=== PATIENT | female | born 1980 | race African-American/Black ===

== ENCOUNTER 2018-10-16 14:52 | Emergency (ER) | payer SELFPAY ==
[~2018-10-16] VITALS: Ht 160 cm; Wt 90.7 kg
[2018-10-16 15:08] VITALS: BP 153/86
[2018-10-16] MEDS ORDERED: EC-NAPROXEN500 MG PO (15:12)
--- NOTE | 2018-10-16 16:30 | NUR ---
ED Nurse Note: Patient presents to ER due to abdominal pain, tightness in the chest and palpitation x 3 days; reports no N/V/D or fever or chills. Reports no dyspnea o SOB. Patient sitting in chair without facial grimacing or guarding. Regular, unlabored breathing noted. Patient states she was relaxing in sofa. Reports no heavy meal or exercise. Patient sittin in chair using cell phone.
--- NOTE | 2018-10-16 16:53 | Diagnostic Imaging Report ---
Indication: Chest pain Comparison: None A single view chest radiograph was obtained. Findings: Cardiomediastinal appearance is within normal limits for age. The lungs are clear. Pulmonary vascularity is appropriate. The diaphragmatic contour is smooth and costophrenic angles are sharp. No pleural effusions are identified. The bones are unremarkable. Impression: No acute findings
--- NOTE | 2018-10-16 17:25 | NUR ---
ED Nurse Note: Patient c/o headache. Reports no N/V. PA made aware.
--- NOTE | 2018-10-16 17:33 | Emergency Room Report ---
History of Present Illness General Chief Complaint: Abdominal Pain Source: Patient Present Illness HPI 38-year-old female with no significant past Mickey history here complaining of 2 days of continuous palpitation and tightness in epigastric area. Patient denies chest pain, radiation of chest pain, shortness of breath and wheezing. Denies recent URI symptoms. Patient reports that she measure her blood pressure at home does not have any history of high blood pressure and her blood pressure was elevated. Denies dizziness and headache. Patient is rating her pain in epigastric area 3 out of 10 denying any nausea vomiting. Denies eating acidic and spicy food. Denies alcohol intake and smoking. Patient reports that she has history of anxiety denying SI and HI. Denies urinary symptoms, diarrhea, blood in her stool. Patient is sitting or comfortably listening to music however complains of headache and anxiety. Vital signs are within normal limit blood pressure slightly elevated however he goes down through her visit. Has been taking naproxen for generalized edema and reports that she has been taking it for a month. Denies acid reflux. Patient reports that her palpitations started as she was sitting down and does not recall whether there was any stressor Allergies: Coded Allergies: No Known Allergies (Unverified , 10/16/18) Patient History Past Medical History: see triage record Past Surgical History: unable to obtain Pertinent Family History: none Last Menstrual Period: JULY 2018 Now: No Immunizations: UTD Reviewed Nursing Documentation: PMH: Agreed; PSxH: Agreed Nursing Documentation-PMH Past Medical History: No Stated History Review of Systems All Other Systems: negative except mentioned in HPI Physical Exam Vital Signs Date Time Temp Pulse Resp B/P (MAP) Pulse Ox O2 Delivery O2 Flow Rate FiO2 10/16/18 15:08 98.2 98 16 153/86 (108) 97 Sp02 EP Interpretation: reviewed, normal General Appearance: normal inspection, well appearing, no apparent distress, alert, GCS 15 Head: normocephalic, atraumatic Eyes: bilateral eye normal inspection, bilateral eye PERRL ENT: normal ENT inspection, hearing grossly normal, normal pharynx, no angioedema, TMs + canals normal Neck: normal inspection, full range of motion, supple, no bony tend, no carotid bruits Respiratory: normal inspection, chest non-tender, lungs clear, normal breath sounds, no rhonchi, no respiratory distress, no retraction, no wheezing Cardiovascular #1: normal inspection, normal peripheral pulses, regular rate, rhythm, no edema, no gallop, no murmur, normal capillary refill Gastrointestinal: normal inspection, non tender, soft, no mass, no bruit, no guarding, no pulsatile mass, no rebound Genitourinary: no CVA tenderness Musculoskeletal: normal inspection, back normal, digits/nails normal, gait/ station normal Neurologic: normal inspection, alert, oriented x3, responsive, business instructor III-XII nml as tested, motor strength/tone normal Psychiatric: normal inspection, judgement/insight normal Skin: no rash, palpation normal, normal color Lymphatic: normal inspection, no adenopathy, axilla node tender (R) Medical Decision Making PA Attestation Diagnosis and treatment plans were reviewed and discussed with my supervising physician Dr. Loyd Diagnostic Impression: Primary Impression: Palpitations Additional Impression: Gastroesophageal reflux disease ER Course 38-year-old female with no significant past Mickey history here complaining of 2 days of continuous palpitation and tightness in epigastric area. Patient denies chest pain, radiation of chest pain, shortness of breath and wheezing. Denies recent URI symptoms. Patient reports that she measure her blood pressure at home does not have any history of high blood pressure and her blood pressure was elevated. Denies dizziness and headache. Patient is rating her pain in epigastric area 3 out of 10 denying any nausea vomiting. Denies eating acidic and spicy food. Denies alcohol intake and smoking. Patient reports that she has history of anxiety denying SI and HI. Denies urinary symptoms, diarrhea, blood in her stool. Patient is sitting or comfortably listening to music however complains of headache and anxiety. Vital signs are within normal limit blood pressure slightly elevated however he goes down through her visit. Has been taking naproxen for generalized edema and reports that she has been taking it for a month. Denies acid reflux. Patient reports that her palpitations started as she was sitting down and does not recall whether there was any stressor Ddx considered but are not limited to: IA, Angina, GERD, palpitation secondary to anxiety Vital signs: are WNL, pt. is afebrile H&PE are most consistent with palpitations secondary to anxiety, GERD ORDERS: EKG, Chest XR, Tylenol, omeprazole ED INTERVENTIONS: Tylenol DISCHARGE: At this time pt. is stable for d/c to home. Will provide printed patient care instructions, and any necessary prescriptions. Care plan and follow up instructions have been discussed with the patient prior to discharge. At this time patient to follow-up with her primary care provider no further work-up is needed as there is slightly elevated blood pressure and palpitation are not related to normal EKG noted patient has no further risk factors such as old age, diabetes, history of hypertension, smoking status alcohol intake in order for her to be further worked up for acute onset of palpitation. Patient is sitting up comfortably with the remaining of her vital signs within normal limits. I advised the patient to follow-up with a primary care provider for further work-up also avoid eating spicy acidic food and avoid taking naproxen and it can be recent of her symptoms and acid reflux presenting as palpitation and pain. EKG Diagnostic Results Rate: normal ST Segments: no acute changes Chest X-Ray Diagnostic Results Chest X-Ray Diagnostic Results : Chest X-Ray Ordered: Yes # of Views/Limited/Complete: 1 View Indication: Other EP Interpretation: Yes [id number] Xray: Interpretation reviewed, by supervising MD, and agrees with findings. Interpretation: no consolidation, no effusion, no pneumothorax, no acute cardiopulmonary disease Impression: No acute disease Electronically Signed by: Rajeev Mayen PA-C Last Vital Signs Date Time Temp Pulse Resp B/P (MAP) Pulse Ox O2 Delivery O2 Flow Rate FiO2 10/16/18 15:08 98.2 98 16 153/86 (108) 97 Disposition: HOME, SELF-CARE Condition: Stable Scripts Acetaminophen (Tylenol) 325 Mg Tablet 650 MG ORAL Q6H PRN for Prn Pain/Headache/Temp > 101, #30 TAB 0 Refills Prov: Rajeev Kelly 10/16/18 Omeprazole (OMEPRAZOLE) 20 Mg Capsule. 20 MG ORAL DAILY, #30 CAP Prov: Rajeev Kelly 10/16/18 Referrals: NOT CHOSEN IPA/,REFERRING (PCP) Patient Instructions: Gastroesophageal Reflux Disease, Adult, Palpitations, [id number] Additional Instructions: Follow-up with a primary care provider for further assessment at this time based on your normal EKG and chest x-ray and vital being stable no indication for acute's onset of chest pain or palpitation. Your symptoms can be secondary to anxiety. Rajeev Kelly Oct 16, 2018 17:33
[2018-10-16] MEDS ORDERED: OMEPRAZOLE20 M2 ORAL (17:36)
[2018-10-16] MEDS ORDERED: TYLENOL325 MG ORAL (17:36)
--- NOTE | 2018-10-16 17:40 | NUR ---
ED Nurse Note: Patient watching video on cell phone. No facial grimacing or guarding noted.
[2018-10-16 18:10] VITALS: BP 124/73
--- NOTE | 2018-10-16 18:10 | NUR ---
ED Nurse Note: Patient is being discharged from medical care. D/C instruction and prescription given to patient. All questions were answered. Patient ambulated out with steady gait with all her belongings.
== END 2018-10-16 18:10 | disposition home or self-care (01) ==
LOC: EMR 16:29
DX: R00.2 Palpitations (principal); K21.9 Gastro-esophageal reflux disease without esophagitis; R51 Headache; F41.9 Anxiety disorder, unspecified
CPT/HCPCS: 71045; 93005; 99283